=== PATIENT | male | born 1935 | race Caucasian/White ===

== ENCOUNTER → 2020-08-08 | Outpatient (CLI) | payer MEDICARE ==
[~2020-08-08] MED LIST: ASPI-496 PO; ASPIRIN PO; CALC1CAP8 PO; CEPH-368 PO; CYCL5TAB PO; FLUR30CA3 PO; GLUC15006 PO; HYDR-3237 PO; MULT-642 PO; REGADENOSON 0.4 MG/5 ML SYRINGE ONE; SIMV40TA20 PO; TAMS0.4C2 PO; ZOLP10TA5 PO
== END | disposition home or self-care (01) ==
LOC: RAD 07:33
PROVIDERS: ATTEND Internal Medicine Cardiovascular Disease
DX: Z01.810 Encounter for preprocedural cardiovascular examination (principal); I25.10 Atherosclerotic heart disease of native coronary artery without angina pectoris; Z95.810 Presence of automatic (implantable) cardiac defibrillator
CPT/HCPCS: 78452; 93017; A9502; J2785